=== PATIENT | female | born 1970 | race Asian ===

== ENCOUNTER 2021-03-12 18:53 | Emergency (ER) | payer BC ==
[~2021-03-12] VITALS: Ht 157.5 cm; Wt 59.9 kg
--- NOTE | 2021-03-12 19:15 | NUR ---
Dr Jenkins at bedside for MSE.
--- NOTE | 2021-03-12 19:31 | NUR ---
Xray at bedside.
[2021-03-12 19:40] LABS: HEMATOCRIT 37.5 % (31.2-41.9); MEAN CORPUSCULAR HEMOGLOBIN 29.2 uug (24.7-32.8); MEAN CORPUSCULAR VOLUME 87.2 fL (75.5-95.3); PLATELET COUNT (AUTO) 266 K/uL (179-408)
[2021-03-12 19:46] LABS: CREATININE 0.9 mg/dL (0.6-1.3); POTASSIUM 3.5 mmol/L (3.5-5.1)
[2021-03-12 19:52] LABS: BILIRUBIN,TOTAL 0.4 mg/dL (0.2-1.0); TOTAL PROTEIN, SERUM 7.1 g/dL (6.4-8.2)
--- NOTE | 2021-03-12 21:05 | NUR ---
Patient discharged to home in stable condition. Written and verbal after care instructions given. Patient verbalizes understanding of instructions. Stressed follow up or return to ER for worsening s/s. Patient out of ER with steady gait, no acute signs of distress, VSS, all belongings taken, provided with copies of lab and xray results.
[2021-03-12 21:06] VITALS: BP 117/90
== END 2021-03-12 21:06 | disposition home or self-care (01) ==
LOC: ER 18:57
DX: M25.512 Pain in left shoulder (principal); R63.4 Abnormal weight loss; Z68.24 Body mass index [BMI] 24.0-24.9, adult
CPT/HCPCS: 36415; 73030; 85025; A4663